=== PATIENT | female | born 1990 | race Caucasian/White ===

== ENCOUNTER → 2017-12-05 15:20 | Observation (INO) ==
[2017-12-05 14:10] LABS: Basophils # 0.1 K/mcL (0.0-0.2); Basophils % 0.4 %; Eosinophils # 0.1 K/mcL (0.0-0.6); Eosinophils % 0.8 %; Hematocrit 34.1 % (35.3-44.9); Hemoglobin 11.7 g/dL (11.5-15.4); Lymphocytes % 13.9 %; Mean Corpuscular HGB Conc 34.3 g/dL (31.6-35.5); Mean Corpuscular Volume 84.4 fL (83.0-100.0); Mean Platelet Volume 9.8 fL (9.4-12.4); Monocytes # 0.9 K/mcL (0.0-1.3); Monocytes % 5.9 %; Neutrophils # 11.3 K/mcL (1.6-8.9); Platelet Count 254 K/mcL (140-400); Red Blood Count 4.04 M/mcL (3.82-4.97); Red Cell Distribution Width 13.6 % (11.5-14.5)
[2017-12-05 14:30] LABS: Alanine Aminotransferase 9 Units/L (7-52); Aspartate Amino Transferase 9 Units/L (13-39); BUN/Creatinine Ratio 16 (6-26); Blood Urea Nitrogen 8 mg/dL (6-20); Lactate Dehydrogenase 123 Units/L (140-271); Uric Acid 4.6 mg/dL (2.3-7.6); eGFR For Non-African Americans > 60 (> 60)
[2017-12-05 14:31] LABS: Amphetamine Screen,Urine Negative ng/mL (Cutoff=1000); Barbiturate Screen,Urine Negative ng/mL (Cutoff=200); Benzodiazepines Screen,Urine Negative ng/mL (Cutoff=200); Cannabinoid Screen,Urine Negative ng/mL (Cutoff = 50); Cocaine Screen,Urine Negative ng/mL (Cutoff= 300); Creatinine,Urine 141 mg/dL; Opiate Screen,Urine Negative ng/mL (Cutoff=300); Phencyclidine Screen,Urine Negative ng/mL (Cutoff=25); Protein/Creatinine Ratio,Urine 0.08 mg/mg (0.00-0.20)
--- NOTE | 2017-12-05 15:07 | Discharge Summary ---
Date of Encounter: 12/05/17 Time of Encounter: 15:08 - Discharge Diagnosis (1) 25 weeks gestation of Priority: Primary Status: Acute Comments: admitted for observation PIH evaluation PIH labs and protein creat ration WNL Serial BPs within normal limits. Discussed with Dr. Barrientos Patient to be discharged home and follow up with Dr. Jaime as scheduled. FHR 145 bpm appropriate for gestational age (2) Headache in , antepartum Priority: Secondary Status: Acute Comments: Patient reports headache is dull but hasn't taken tylenol in a while Patient has congestion and nasal stuffiness-discussed taking claritin, PO hydration - Discharge Medications Home Medications: Pnv No.122/Iron/Folic Acid [ Multi Tablet] 1 tab PO DAILY 12/05/17 [ History] Allergies/Adverse Reactions: 3 Allergy/AdvReac Type Severity Reaction Status Date / Time No Known Allergies Allergy Verified 08/17/17 19:10 Data Procedures and tests throughout hospitalization: Laboratory Tests 12/05/17 12/05/17 12/05/17 13:47 13:47 13:47 WBC 14.5 H RBC 4.04 Hgb 11.7 Hct 34.1 L MCV 84.4 MCH 29.0 MCHC 34.3 RDW 13.6 Plt Count 254 MPV 9.8 Immature Gran % 1.0 Seg Neutrophils % 78.0 Lymphocytes % 13.9 Monocytes % 5.9 Eosinophils % 0.8 Basophils % 0.4 Neutrophils # 11.3 H Lymphocytes # 2.0 Monocytes # 0.9 Eosinophils # 0.1 Basophils # 0.1 BUN 8 Creatinine 0.51 L Est GFR ( Amer) > 60 Est GFR (Non-Af Amer) > 60 BUN/Creatinine Ratio 16 Uric Acid 4.6 AST 9 L ALT 9 Lactate Dehydrogenase 123 L Urine Creatinine 141 Protein/Creatinin Ratio 0.08 Urine Total Protein 11 Urine Opiates Screen Negative Ur Barbiturates Screen Negative Ur Phencyclidine Scrn Negative Ur Amphetamines Screen Negative U Benzodiazepines Scrn Negative Urine Cocaine Screen Negative U Marijuana (THC) Screen Negative Ur Drug Screen Interp See Below Labs on day of discharge: Labs from last 24 hours 12/05/17 12/05/17 12/05/17 13:47 13:47 13:47 WBC 14.5 H RBC 4.04 Hgb 11.7 Hct 34.1 L MCV 84.4 MCH 29.0 MCHC 34.3 RDW 13.6 Plt Count 254 MPV 9.8 Immature Gran % 1.0 Seg Neutrophils % 78.0 Lymphocytes % 13.9 Monocytes % 5.9 Eosinophils % 0.8 Basophils % 0.4 Neutrophils # 11.3 H Lymphocytes # 2.0 Monocytes # 0.9 Eosinophils # 0.1 Basophils # 0.1 BUN 8 Creatinine 0.51 L Est GFR ( Amer) > 60 Est GFR (Non-Af Amer) > 60 BUN/Creatinine Ratio 16 Uric Acid 4.6 AST 9 L ALT 9 Lactate Dehydrogenase 123 L Urine Creatinine 141 Protein/Creatinin Ratio 0.08 Urine Total Protein 11 Urine Opiates Screen Negative Ur Barbiturates Screen Negative Ur Phencyclidine Scrn Negative Ur Amphetamines Screen Negative U Benzodiazepines Scrn Negative Urine Cocaine Screen Negative U Marijuana (THC) Screen Negative Ur Drug Screen Interp See Below Date of admission: 12/05/17 13:38 Discharging clinician: Adenike Palomares Anticipated date of discharge: 12/05/17 - Patient Status Disposition: Home, Self-Care Condition: Good Functional capacity at discharge: independent ambulation - Discharge Instructions Follow Up With: Mehran Jaime MD [Partnered Physician] - - Diet and Activity Activity: increase activity as tolerated Diet: regular diet Hospital 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 Patient reports BP was slightly elevated in the ED. Patient also reports decrease movement. Patient denies contractions, LOF or VB. Patient reported feeling movement while on the monitor. Time Attestation: Total time spent providing and/or coordinating discharge services: Time Spent: Less than 30 minutes Exam - Constitutional General appearance IM: A&O X 3, no acute distress, answers questions appropriately - GI/Abdominal GI/Abdominal exam IM: normal bowel sounds - Extremities Exam Extremities exam IM: Present: full ROM, normal capillary refill, normal inspection - Neurological Exam Neurological exam: alert, oriented X3, reflexes normal - VTE Reasons for not Prescribing Prophylaxis: Treatment not Indicated - Low risk for VTE
== END | disposition home or self-care (01) ==
LOC: 1NENULAB
PROVIDERS: ADMIT Advanced Practice Midwife; ATTEND Advanced Practice Midwife

== ENCOUNTER 2018-03-08 08:00 | Inpatient (IN) ==
[2018-03-08] MEDS ORDERED: Metoclopramide 10 MG/2 ML VIAL IVP PRN (09:05)
[2018-03-08] MEDS ORDERED: *HR* Nalbuphine 10 MG/ML AMPUL IVP PRN (09:05)
[2018-03-08] MEDS ORDERED: Famotidine 20 MG/2 ML VIAL IVP PRN (09:05)
[2018-03-08] MEDS ORDERED: Ondansetron 4 MG/2 ML VIAL IVP PRN (09:05)
[2018-03-08] MEDS ORDERED: Naloxone 0.4 MG/ML INJ IVP PRN (09:05)
[2018-03-08] MEDS ORDERED: miSOPROStol 25 MCG TABLET PO PRN (09:09)
[2018-03-08] MEDS ORDERED: Penicillin G Potassium 5,000,000 UNIT in 0.9 % Sodium Chloride Mini Bag 100 ML IVPB ONE (09:09)
[2018-03-08] MEDS ORDERED: Ringers Solution, Lactated 1,000 ML IVC SCH (09:15)
[2018-03-08 09:25] LABS: Basophils # 0.1 K/mcL (0.0-0.2); Basophils % 0.4 %; Eosinophils # 0.1 K/mcL (0.0-0.6); Eosinophils % 0.8 %; Hematocrit 34.5 % (35.3-44.9); Hemoglobin 11.5 g/dL (11.5-15.4); Immature Granulocytes % 0.6 % (0-4); Lymphocytes # 1.8 K/mcL (0.6-4.6); Lymphocytes % 13.1 %; Mean Corpuscular HGB Conc 33.3 g/dL (31.6-35.5); Mean Corpuscular Hemoglobin 27.6 pg (28.0-33.3); Mean Corpuscular Volume 82.7 fL (83.0-100.0); Monocytes % 7.2 %; Neutrophils # 10.7 K/mcL (1.6-8.9); Platelet Count 229 K/mcL (140-400); Red Blood Count 4.17 M/mcL (3.82-4.97); Red Cell Distribution Width 14.6 % (11.5-14.5); Segmented Neutrophils % 77.9 %
[2018-03-08 10:02] LABS: Amphetamine Screen,Urine Negative ng/mL (Cutoff=1000); Barbiturate Screen,Urine Negative ng/mL (Cutoff=200); Benzodiazepines Screen,Urine Negative ng/mL (Cutoff=200); Cannabinoid Screen,Urine Negative ng/mL (Cutoff = 50); Cocaine Screen,Urine Negative ng/mL (Cutoff= 300); Opiate Screen,Urine Negative ng/mL (Cutoff=300); Phencyclidine Screen,Urine Negative ng/mL (Cutoff=25)
[2018-03-08] MEDS ORDERED: Oxytocin 20 units/ LR 1000 mL 20 UNIT/1,000 ML BAG IVC SCH (13:30)
[2018-03-08] MEDS: Penicillin G Potassium 2,500,000 UNIT in 0.9 % Sodium Chloride 100 ML IVPB SCH ×3 (14:05→22:43)
[2018-03-08] MEDS ORDERED: Epidural Premix (fent/bupiv) 110 ML EP SCH (19:15)
--- NOTE | 2018-03-08 20:02 | Anesthesia Evaluation PreOp ---
Date of Encounter: 03/08/18 Time of Encounter: 20:01 - Past History Planned Operation: SHANNAN Cardiac History: Denies any Significant Hx Pulmonary History: Denies Any Significant HX TRANSPORTATION ENGINEER History: Denies Any Significant HX Other Medical History: Diabetes Type II (Gestational) Anesthesia History: No Prior Anesthetic Complications, Past Anesthesia : Yes Alcohol Use: none Drug use: none Medications and Allergies Pnv No.122/Iron/Folic Acid [ Multi Tablet] 1 tab PO DAILY 12/05/17 [History] metFORMIN [Glucophage] 1,000 mg PO BIDWM 03/08/18 [History] Allergy/AdvReac Type Severity Reaction Status Date / Time No Known Allergies Allergy Verified 08/17/17 19:10 - Meds/Allergy Pre-op Review Medications Reviewed: Yes Allergies Reviewed: Yes Beta Blockers on Current Med List: No Anesthesia Results - Labs 03/08/18 09:05 Anesthesia Exam O2 Sat Height 1.63 m Height 1.63 m Weight 106.5 kg Weight 106.5 kg NPO (# of Hours): 4 Pain Scale: 5 Pain Scale Used: Numeric (1 - 10) - HEENT Pupil (Motor): Pupils equal Mallampati: II Teeth: Normal Oral Opening: Greater than 3 - TRANSPORTATION ENGINEER LOC: Oriented TRANSPORTATION ENGINEER Motor: Normal RUE, Normal LUE, Normal RLE, Normal LLE, Normal Face TRANSPORTATION ENGINEER Sensory: Normal: RUE, LUE, RLE, LLE, Face - Cardiac Rhythm: Regular Murmur: None JVD: No Carotid Bruit: No - Pulmonary Breath Sounds: bilateral Clear Respiratory Effort: Symmetrical Anesthesia Assess/Plan ASA Score: 3 (BMI 40) Level of consciousness: Cooperative, Oriented Anesthetic Plan: General (plan b), Epidural (plan a) Autologous Blood: Yes Monitoring Plan: Standard Monitors Recovery Plan: PACU
--- NOTE | 2018-03-08 22:13 | OB/GYN History & Physical ---
Date of Encounter: 03/08/18 Time of Encounter: 08:00 Assessment and Plan (1) 39 weeks gestation of Current visit: Yes Status: Acute Pt presents at 39 weeks gestastion for indcution of labor. She reports irregular uc's, no vb or lof. (2) Gestational diabetes Current visit: Yes Status: Acute Pt with good glycemeic control on Metformin. Qualifiers: Gestational diabetes mellitus control: oral hypoglycemic-controlled Trimester: third trimester Qualified Code(s): O24.415 - Gestational diabetes mellitus in , controlled by oral hypoglycemic drugs History of Present Illness Chief complaint: Here for induction of labor HPI: Ms. Alvarado is a 27 year old female G1Po female at 39 weeks gestation presents for induction of labor. On arrival she reports +GFM, no vb or lof. has been complicated by gestational diabetes controlled by oral hypoglycemics. Past Med Surg Social Fam HX - Past Medical History Source: patient, old records reviewed Medical history: no medical history Additional medical history: PCOS Psychiatric history: no psych history - Past Surgical History Surgical History: non-contributory Additional surgical history: T&A - Social History Smoking Status: Never smoker Smokeless Tobacco Status: No Alcohol use: none Drug use: none - Family History Father History Unknown: Yes Living Status: Still Living Hx Family Cardiac Disorders: Yes (HTN) Hx Family Endocrine Disorder: Yes (DM II) Obstetrical History - Pregnancies : 1 Medications and Allergies Pnv No.122/Iron/Folic Acid [ Multi Tablet] 1 tab PO DAILY 12/05/17 [History] metFORMIN [Glucophage] 1,000 mg PO BIDWM 03/08/18 [History] Allergy/AdvReac Type Severity Reaction Status Date / Time No Known Allergies Allergy Verified 08/17/17 19:10 Exam - Constitutional Constitutional: well developed - HEENT HEENT: EOMI, PERRL - Neck Neck exam: full ROM - Lungs Respiratory exam: CTAB - Cardiovascular Cardiovascular exam: RRR - Abdomen Abdomen: Present: gravid - Extremities Extremities exam: full ROM Deep Tendon Reflex Grade: 2+ Normal - Cervix Dilation: 1 Effacement: 70 Station: -2 Results Result Diagrams: 03/08/18 09:05 Abnormal lab results WBC 13.7 K/mcL (4.3-11.1) H 03/08/18 09:05 Hct 34.5 % (35.3-44.9) L 03/08/18 09:05 MCV 82.7 fL (83.0-100.0) L 03/08/18 09:05 MCH 27.6 pg (28.0-33.3) L 03/08/18 09:05 RDW 14.6 % (11.5-14.5) H 03/08/18 09:05 Neutrophils # 10.7 K/mcL (1.6-8.9) H 03/08/18 09:05 All other labs normal. - VTE Reasons for not Prescribing Prophylaxis: Treatment not Indicated - Low risk for VTE
--- NOTE | 2018-03-08 22:17 | OB Labor Progress Note ---
Date of Encounter: 03/08/18 Time of Encounter: 08:30 Labor Progress Note - Subjective Subjective: Pt with cramps - Cervix Cervix: /-2 - Heart Tones Heart Tones: RNST - [place]: irregular uc's - Interventions Interventions: Attempt made at intracervical intrafoley cath placement. During attempt AROM of clear occured. Will begin pitocin as able.
--- NOTE | 2018-03-08 22:19 | OB Labor Progress Note ---
Date of Encounter: 03/08/18 Time of Encounter: 22:17 Labor Progress Note - Subjective Subjective: Pt getting more uncomfortable, desires epidural - Heart Tones Heart Tones: RNST - [place]: uc's q 90 sec. - Interventions Interventions: Consider IUPC after epidural placed. - Plan Plan: Expect .
[2018-03-08] MEDS ORDERED: Lidocaine -MPF 1% 5 ML AMPUL ONE (22:24)
--- NOTE | 2018-03-08 22:59 | Anesthesia Procedures ---
Addendum entered and electronically signed by Ricardo Servin CRNA 03/09/18 19:22: Infant Delivery Date: 03/09/18 Infant Delivery Time: 12:41 Original Note: Date of Encounter: 03/08/18 Time of Encounter: 22:57 Procedures: Anesthesia - Epidural/Spinal Patient ID/Chart reviewed: Yes Patient examined: Yes OB Eval: : 1 OB Eval: Hx Para: 0 OB Eval: Dilated at (cm): 3 OB Eval: Contractions: Non-stressed pattern Consent Obtained: Yes Supplemental Oxygen: None/Room Air Site Prep: Aseptic Technique, Sterile prep and drape, Povidone-Iodine 1% Patient position: upright Local Anesthetic: Lidocaine 1% Amount of Local Anesthetic used: 3 Touhy Needle Gauge: 18 Touhy Needle Depth (cm): 9 Catheter Depth at Skin (cm): 20 Test Dose (1.5% Lido + Epi): Volume given (mls): 5 Test Dose Result: Negative Loading Dose: Other: 10mls of epidural pharm bag solution Loading Dose Administered: Thru Catheter Infusion Med: 0.125% Bupivacaine w/ 2 mcg/ml Fentanyl Infusion Rate (mls/hr): 15 ([id number] pcea) Catheter Secured in Place: Tegaderm, Tape Interspace Used: L4-L5 Loss of Resistance (CYNTHIA): Yes Blood: No CSF: No Paresthesia: No Procedure: pt tolerated procedure well. no complications. vss. fhr stable.
--- NOTE | 2018-03-08 22:59 | OB Labor Progress Note ---
Date of Encounter: 03/08/18 Time of Encounter: 22:57 Labor Progress Note - Subjective Subjective: Pt comfortable with epidural - Cervix Cervix: 2/80/-2 - Heart Tones Heart Tones: RNST - Interventions Interventions: IUPC placed - Plan Plan: Continue to increase pitocin with expectation of . Cont. PCN for +GBBS.
[2018-03-09] MEDS: Penicillin G Potassium 2,500,000 UNIT in 0.9 % Sodium Chloride 100 ML IVPB SCH ×2 (02:30→06:30)
[2018-03-09] MEDS ORDERED: *HR* Ropivacaine/PF 0.2% 20 ML VIAL ONE (05:46)
[2018-03-09] MEDS ORDERED: *HR* FentaNYL (PF) 100 MCG/2 ML VIAL ONE ×2 (05:46→08:39)
--- NOTE | 2018-03-09 05:55 | Anesthesia Progress Note ---
Date of Encounter: 03/09/18 Time of Encounter: 05:54 Anesthesia Note - Note Note: 03/09/18 05:54 called for increased pain during contractions - only on the left side. pt assessed. pt turned onto her left side at this time. bolus given of 0.2% ropivacaine with 100mcg fentanyl after negative aspiration. gtt increased to 18ml/hr and pcea [id number]. pt tolerated well. vss. fhr stable.
--- NOTE | 2018-03-09 08:49 | Anesthesia Progress Note ---
Date of Encounter: 03/09/18 Time of Encounter: 08:46 Anesthesia Note - Note Note: 03/09/18 08:46 Called for recurrent L side pain w contractions. VSS, bolused w 7cc Ropivicaine 0.2% and fentanyl 100mcg.
--- NOTE | 2018-03-09 13:32 | OB/GYN Procedure Note ---
Delivery - Delivery Date: 03/09/18 Provider: Mehran Jaime Intrapartum events: none Delivery induction: oxytocin, misoprostol Delivery monitor: external FHT, internal FHT, internal uterine Anesthesia: epidural Quantitated Blood Loss: 300 - (s) Infant A Infant Delivery Date: 03/09/18 Infant Delivery Time: 12:41 Presentation: vertex Position: AMBIKA Route of delivery: vacuum extraction Gender: Female Viability: Viable Pounds: 7 Ounces: 9 at 1 minute: 8 at 5 mins: 9 Shoulder Dystocia: not encountered Specimens collected: cord blood Placenta: spontaneous Cord: nuchal cord - Repair Episiotomy: none Laceration Description: Perineal - 1st Degree, Labial (right) - Disposition Mom disposition: stable in LDR disposition: stable in LDR - Comments Comments: Pt reached complete dilation and +2-+3 station. She was getting quite exhausted and asked of options. D/w pt option of continued expectant mgmt vs vacuum vs c- section with risk and benefits of each. Pt did verbally consent to vacuum extraction. With good maternal effort vacuum was applied at +3 station and good maternal effort was delivered from AMBI[place] presentation. weight was 7lb 9 oz and APGARS 8 at 1 and 9 at 5 min. 1st degree laceration and right labial tear repaired without difficulty. EBL 300 cc mother and infant recovered in LDR.
[2018-03-09] MEDS ORDERED: Ibuprofen 600 MG TABLET PO PRN (16:47)
[2018-03-09] MEDS ORDERED: Rho Immune Globulin 1,500 UNIT SYRINGE IM PRN (16:47)
[2018-03-09] MEDS ORDERED: Measles/Mumps/Rubella Vacc 0.5 ML VIAL SQ PRN (16:47)
[2018-03-09] MEDS ORDERED: Acetaminophen 325 MG TABLET PO PRN (16:47)
[2018-03-09] MEDS ORDERED: Oxytocin 20 units/ LR 1000 mL 20 UNIT/1,000 ML BAG IVC SCH (16:47)
[2018-03-10 06:27] LABS: Basophils # 0.1 K/mcL (0.0-0.2); Basophils % 0.4 %; Eosinophils # 0.2 K/mcL (0.0-0.6); Eosinophils % 1.4 %; Hematocrit 26.6 % (35.3-44.9); Immature Granulocytes % 0.7 % (0-4); Lymphocytes % 12.5 %; Mean Corpuscular HGB Conc 34.2 g/dL (31.6-35.5); Mean Corpuscular Hemoglobin 28.6 pg (28.0-33.3); Mean Corpuscular Volume 83.6 fL (83.0-100.0); Mean Platelet Volume 9.6 fL (9.4-12.4); Monocytes # 1.4 K/mcL (0.0-1.3); Monocytes % 8.8 %; Neutrophils # 12.2 K/mcL (1.6-8.9); Platelet Count 204 K/mcL (140-400); Red Blood Count 3.18 M/mcL (3.82-4.97); Red Cell Distribution Width 14.6 % (11.5-14.5); Segmented Neutrophils % 76.2 %
[2018-03-10 06:29] LABS: Hemoglobin 9.1 g/dL (11.5-15.4)
--- NOTE | 2018-03-10 08:20 | Discharge Summary ---
Date of Encounter: 03/10/18 Time of Encounter: 08:18 - Discharge Diagnosis (1) Vaginal delivery Priority: Primary Status: Acute Comments: Continue routine care discharge home today follow up with Dr. Jaime in 4-6 weeks (2) Breast feeding status of mother Priority: Secondary Status: Acute Comments: support prn - Discharge Medications Home Medications: Pnv No.122/Iron/Folic Acid [ Multi Tablet] 1 tab PO DAILY 12/05/17 [History] Allergies/Adverse Reactions: Allergy/AdvReac Type Severity Reaction Status Date / Time No Known Allergies Allergy Verified 08/17/17 19:10 Data Procedures and tests throughout hospitalization: Laboratory Tests 03/08/18 03/08/18 03/09/18 09:00 09:05 11:28 WBC 13.7 H RBC 4.17 Hgb 11.5 Hct 34.5 L MCV 82.7 L MCH 27.6 L MCHC 33.3 RDW 14.6 H Plt Count 229 MPV 10.0 Immature Gran % 0.6 Seg Neutrophils % 77.9 Lymphocytes % 13.1 Monocytes % 7.2 Eosinophils % 0.8 Basophils % 0.4 Neutrophils # 10.7 H Lymphocytes # 1.8 Monocytes # 1.0 Eosinophils # 0.1 Basophils # 0.1 POC Glucose 99 Urine Opiates Screen Negative Ur Barbiturates Screen Negative Ur Phencyclidine Scrn Negative Ur Amphetamines Screen Negative U Benzodiazepines Scrn Negative Urine Cocaine Screen Negative U Marijuana (THC) Screen Negative Ur Drug Screen Interp See Below 03/10/18 06:15 WBC 16.1 H RBC 3.18 L Hgb 9.1 L D Hct 26.6 L MCV 83.6 MCH 28.6 MCHC 34.2 RDW 14.6 H Plt Count 204 MPV 9.6 Immature Gran % 0.7 Seg Neutrophils % 76.2 Lymphocytes % 12.5 Monocytes % 8.8 Eosinophils % 1.4 Basophils % 0.4 Neutrophils # 12.2 H Lymphocytes # 2.0 Monocytes # 1.4 H Eosinophils # 0.2 Basophils # 0.1 POC Glucose Urine Opiates Screen Ur Barbiturates Screen Ur Phencyclidine Scrn Ur Amphetamines Screen U Benzodiazepines Scrn Urine Cocaine Screen U Marijuana (THC) Screen Ur Drug Screen Interp Labs on day of discharge: Labs from last 24 hours 03/10/18 03/09/18 06:15 11:28 WBC 16.1 H RBC 3.18 L Hgb 9.1 L D Hct 26.6 L MCV 83.6 MCH 28.6 MCHC 34.2 RDW 14.6 H Plt Count 204 MPV 9.6 Immature Gran % 0.7 Seg Neutrophils % 76.2 Lymphocytes % 12.5 Monocytes % 8.8 Eosinophils % 1.4 Basophils % 0.4 Neutrophils # 12.2 H Lymphocytes # 2.0 Monocytes # 1.4 H Eosinophils # 0.2 Basophils # 0.1 POC Glucose 99 Date of admission: 03/08/18 08:13 Primary care physician: Valerie Longo CNP Consults: 03/09/18 16:47 Consult to [employer] Flat[employer] [CONS] Routine Comment: Vaginal delivery, consult needed Discharging clinician: Adenike Palomares Anticipated date of discharge: 03/10/18 - Patient Status Disposition: Home, Self-Care Condition: Good Functional capacity at discharge: independent ambulation - Discharge Instructions Follow Up With: Valerie Longo CNP [Primary Care Provider] - Adenike Palomares CNM [Non-Partnered Physician] - - Diet and Activity Activity: increase activity as tolerated Diet: regular diet Hospital Course Reason for admission: induction of labor Delivery: Episiotomy: none Laceration: 1st degree, other (labial laceration) Other procedures: none complications: none Discharge diagnosis: IUP at term delivered [place] baby: female (breast feeding) Time Attestation: Total time spent providing and/or coordinating discharge services: Time Spent: Less than 30 minutes Exam - Constitutional Vitals: Temp Pulse Resp BP Pulse Ox 97.9 F 96 18 105/73 97 03/10/18 07:46 03/10/18 07:46 03/10/18 07:46 03/10/18 07:46 03/10/18 07:46 General appearance IM: A&O X 3, pleasant, answers questions appropriately - Respiratory Respiratory exam: Present: CTAB - Cardiovascular Cardiovascular exam IM: Present: RRR, +S1, +S2 - GI/Abdominal GI/Abdominal exam IM: normal bowel sounds - Uterine Tone: Firm Uterus Position: At Umbilicus, Midline - Extremities Exam Extremities exam IM: Present: full ROM, normal capillary refill, normal inspection - Neurological Exam Neurological exam: alert, oriented X3, reflexes normal
[2018-03-10] MEDS ORDERED: Prenatal Vit/FA 1 EACH TABLET PO SCH (09:00)
[2018-03-10 14:20] VITALS: BP 104/66
== END 2018-03-10 14:40 | disposition home or self-care (01) | DRG 807 ==
LOC: 1NENULAB 08:13 → 1NENUOBS 03-09 15:46
PROVIDERS: ADMIT Obstetrics & Gynecology; ATTEND Obstetrics & Gynecology